=== PATIENT | female | born 1990 | race Caucasian/White ===

== ENCOUNTER 2017-09-28 21:07 | Emergency (ER) | payer OTHER ==
[~2017-09-28] VITALS: Ht 165.1 cm; Wt 144.2 kg
[~2017-09-28 21:07] MED LIST: ALBU90OI INH; CYCL10 PO; Cleocin HCl150 MG PO; DIAZ5 PO; DOXY100 PO; Desyrel50 MG; HYDACE5 PO; IBUP600 PO; IBUP800; MECL25 PO; PERM5TC TOP; PRED10 PO; PRED20 PO; RXHYD5325 PO; TRAM50 PO; Veetids 500500 MG PO
[2017-09-28] MEDS ORDERED: ESCI20 PO (21:13)
[2017-09-28] MEDS ORDERED: PENVK500 PO (21:13)
[2018-06-05] MEDS ORDERED: CYCL10 PO (01:28)
== END 2017-09-28 22:03 | disposition home or self-care (01) ==
LOC: ER 21:07
DX: J02.9 Acute pharyngitis, unspecified (principal); J45.909 Unspecified asthma, uncomplicated; F17.200 Nicotine dependence, unspecified, uncomplicated; Z88.8 Allergy status to other drugs, medicaments and biological substances; Z79.899 Other long term (current) drug therapy; Z79.2 Long term (current) use of antibiotics
CPT/HCPCS: 87081; 87430; 99283

== ENCOUNTER 2018-11-10 10:37 | Emergency (ER) | payer OTHER ==
[~2018-11-10] VITALS: Ht 165.1 cm; Wt 142.9 kg
[~2018-11-10 10:37] MED LIST changes: +ESCI20 PO; +PENVK500 PO
[2018-11-10] MEDS ORDERED: Polytrim Eye Dr10 ML LEFTEYE (11:01)
== END 2018-11-10 11:09 | disposition home or self-care (01) ==
LOC: ER 10:37
DX: H10.9 Unspecified conjunctivitis (principal); J45.909 Unspecified asthma, uncomplicated; F17.210 Nicotine dependence, cigarettes, uncomplicated; Z88.8 Allergy status to other drugs, medicaments and biological substances; Z91.048 Other nonmedicinal substance allergy status; Z79.899 Other long term (current) drug therapy
CPT/HCPCS: 99283

== ENCOUNTER 2019-08-10 10:17 | Emergency (ER) | payer OTHER ==
[~2019-08-10] VITALS: Ht 165.1 cm; Wt 133.8 kg
[~2019-08-10 10:17] MED LIST changes: +Polytrim Eye Dr10 ML LEFTEYE
[2019-08-10] MEDS ORDERED: TIZA4 PO (10:44)
[2019-08-10] MEDS ORDERED: TRAZ50 (10:44)
[2019-08-10] MEDS ORDERED: ESCI20 (10:44)
[2019-08-10] MEDS ORDERED: METPRE4DP PO (11:40)
== END 2019-08-10 11:44 | disposition home or self-care (01) ==
LOC: ER 10:17
DX: M54.16 Radiculopathy, lumbar region (principal); J45.909 Unspecified asthma, uncomplicated; F17.210 Nicotine dependence, cigarettes, uncomplicated; Z88.8 Allergy status to other drugs, medicaments and biological substances
CPT/HCPCS: 96372; 99283-25; J1100; J1885

== ENCOUNTER 2020-01-25 08:41 | Emergency (ER) | payer OTHER ==
[~2020-01-25] VITALS: Ht 165.1 cm; Wt 133.8 kg
[~2020-01-25 08:41] MED LIST changes: +ESCI20; +METPRE4DP PO; +TIZA4 PO; +TRAZ50
[2020-01-25] MEDS ORDERED: Norco 5-325 Ta1 EACH PO (08:56)
[2020-01-25] MEDS ORDERED: METPRE4DP PO (09:17)
[2020-01-25] MEDS ORDERED: Robaxin-750750 MG PO (09:17)
== END 2020-01-25 09:57 | disposition home or self-care (01) ==
LOC: ER 08:41
DX: M54.42 Lumbago with sciatica, left side (principal); F17.210 Nicotine dependence, cigarettes, uncomplicated; Z88.8 Allergy status to other drugs, medicaments and biological substances
CPT/HCPCS: 96372-59; 99283; J1100; J1885

== ENCOUNTER 2020-11-24 19:02 | Emergency (ER) | payer OTHER ==
[~2020-11-24] VITALS: Ht 165.1 cm; Wt 129.7 kg
[~2020-11-24 19:02] MED LIST changes: +Norco 5-325 Ta1 EACH PO; +Robaxin-750750 MG PO
== END 2020-11-24 22:14 | disposition left against medical advice (07) ==
LOC: ER 19:02
DX: K62.5 Hemorrhage of anus and rectum (principal)
CPT/HCPCS: 99282

== ENCOUNTER 2021-04-03 21:26 | Inpatient (IN) | payer OTHER ==
[~2021-04-03] VITALS: Ht 177.8 cm; Wt 137.1 kg
[2021-04-03 22:02] LABS: BASOPHILS ABSOLUTE AUTO 0.04 K/mm3 (0.00-0.23); BASOPHILS PERCENT AUTO 0 % (0-2); EOSINOPHILS ABSOLUTE AUTO 0.06 K/mm3 (0.00-0.68); EOSINOPHILS PERCENT AUTO 0 % (0-6); Hematocrit 49.4 % (33.0-51.0); Hemoglobin 16.5 g/dL (11.5-16.0); IMMATURE GRAN ABSOLUTE AUTO 0.07 K/mm3 (0.00-0.10); IMMATURE GRAN PERCENT AUTO 0 % (0-1); LYMPHOCYTES ABSOLUTE AUTO 2.25 K/mm3 (0.84-5.20); LYMPHOCYTES PERCENT AUTO 14 % (21-46); MONOCYTES ABSOLUTE AUTO 1.14 K/mm3 (0.16-1.47); MONOCYTES PERCENT AUTO 7 % (4-13); Mean Corpuscular HGB 29.8 pg (26.0-34.0); Mean Corpuscular HGB Conc 33.4 g/dL (31.5-36.5); Mean Corpuscular Volume 89 fL (80-100); Mean Platelet Volume 10.9 fL (9.1-12.4); NEUTROPHILS ABSOLUTE AUTO 13.15 K/mm3 (1.96-9.15); NEUTROPHILS PERCENT AUTO 79 % (41-73); Platelet Count 250 K/mm3 (150-400); RDW Coefficient Variation 12.6 % (11.7-14.2); RDW Standard Deviation 41.6 fL (35.1-46.3); Red Blood Cell Count 5.53 M/mm3 (3.80-5.20); White Blood Cell Count 16.71 K/mm3 (4.00-11.30)
[2021-04-03] MEDS ORDERED: Buspirone HCl15 MG PO (22:12)
[2021-04-03] MEDS ORDERED: ESCI20 PO (22:13)
[2021-04-03] MEDS ORDERED: Ventolin/Prove6.7 GM INH (22:13)
[2021-04-03] MEDS ORDERED: ABILIFY5 MG PO (22:14)
[2021-04-03 22:24] LABS: Alanine Aminotransfer (ALT/SGP 106 U/L (12-78); Albumin, Blood 3.9 g/dL (3.4-5.0); Albumin/Globulin Ratio 0.7 (0.8-1.8); Alk Phos 97 U/L (50-136); Anion Gap 9 mmol/L (6-16); Aspartate Aminotrans (AST/SGOT 48 U/L (12-37); Bilirubin, Total 0.9 mg/dL (0.1-1.0); Blood Urea Nitrogen 10 mg/dL (8-24); Bun/Creatinine Ratio 10.4 (12.0-20.0); CO2, Blood 22 mmol/L (21-32); Calcium, Blood 9.7 mg/dL (8.5-10.1); Chloride, Blood 112 mmol/L (98-108); Creatinine, Blood 0.96 mg/dL (0.40-1.00); Globulin, Blood 5.7 g/dL (2.2-4.0); Glomerular Filtration Rate >60 (60-); Glucose, Blood 123 mg/dL (70-99); Potassium, Blood 3.6 mmol/L (3.5-5.5); Sodium, Blood 143 mmol/L (136-145); Total Protein, Blood 9.6 g/dL (6.4-8.2)
[2021-04-03 23:23] LABS: International Normalized Ratio 1.03; Prothrombin Time Results 11.1 Sec (9.7-11.5)
[2021-04-04] MEDS ORDERED: TRAZ150T57 PO (03:01)
--- NOTE | 2021-04-04 10:38 | NUR ---
Echocardiogram completed.
--- NOTE | 2021-04-04 17:02 | NUR ---
ADMIT: 04/04/21 DISCHARGE: DX: Pulmonary Emboli CC: kwilcox RAVI CALL: RESIDENCE: homeless CAREGIVER: self DX: PTSD, Depression, thoracici back pain, see list DME: none CCM: none HOME HEALTH: none SUMMARY: 04/04/21- pt's d/c on hold due to need for O2. Pt is homeless and is going to need samples of Xarelto at discharge. Plan is to potentially d/c Sunday. -michele
--- NOTE | 2021-04-04 18:05 | NUR ---
SHIFT SUMMARY SINCE ARRIVAL TO UNIT, PT HAS BEEN PLEASANT & COOPERATIVE. HEPARIN GTT RUNNING CONTINUOUSLY. DENIED DIZZINESS OR LIGHTHEADEDNESS W/ USE OF BSC.
--- NOTE | 2021-04-05 07:47 | NUR ---
SHIFT SUMMARY S/P BILATERAL PE, A/O X4, VSS, TOLERATING PO, DENIES PAIN T/O SHIFT, HEPARIN DRIP INFUSING, 1X ADJUSTMENT PER PHARMACY TO 20 UNITS/KG/HR WITH ADDITIONAL APTT DRAWS. NO ACUTE EVENTS THIS SHIFT. CALL LIGHT IN REACH, REPORT GIVEN TO DAY RN.
--- NOTE | 2021-04-05 08:54 | NUR ---
PT HAS PHONE COUNSELING SESSION ASKED DOOR TO BE CLOSED FOR PRIVACY.
--- NOTE | 2021-04-05 14:52 | NUR ---
L CALF PAIN CALLED DR HARDING REGARDING PAIN TO PT'S L CALF. PT REPORTS DIFFICULTY BEARING WEIGHT. CALF FEELS WARM BUT NO REDNESS OR FIRMNESS NOTED. ORDERS OBTAINED FOR BILATERAL VENOUS DUPLEX TO R/O DVT. US TECH IN ROOM NOW.
--- NOTE | 2021-04-05 15:01 | NUR ---
POSITIVE FOR DVTS BLE NOTIFIED DR HARDING. ORDERS OBTAINED FOR BEDREST W/BSC PRIVILEGES.
--- NOTE | 2021-04-05 16:02 | NUR ---
04/05/21- per chart review, pt was found to have bilateral pulmonary embolism and DVT. No plan for d/c at this time. -michele
--- NOTE | 2021-04-05 16:37 | NUR ---
PT TEARFUL WISHES TO HAVE VISITOR COME IN. WHEN ADVISED NO VISITORS ALLOWED, ASKED IF COULD GO OUTSIDE. REMINDED PT HAD BEDREST ORDERS; PT COMPLIANT WITH CARE.
--- NOTE | 2021-04-05 17:10 | NUR ---
SUMMARY PT C/O PAIN TO LLE, STATING IT IS DIFFICULT TO BEAR WEIGHT DUE TO PAIN. L CALF FELT WARM BUT NO REDNESS OR FIRMNESS NOTED. NOTIFED DR HARDING, WHO ORDERED BILAT VENOUS DUPLEX OF LOW EXTREMITIES. RESULTS SHOWED BILATERAL DVTS WITH L BEING WORSE THAN RIGHT. PT PLACED ON BEDREST W/BSC PRIVILEGES PER ORDERS. PT ON HEPARIN DRIP MANAGED PER PHARMACY DUE TO ADMITTING DX OF PE. IV PATENT AND INFUSING W/O DIFFICULTY. PT TEARFUL AT TIMES, WISHING COULD HAVE VISITORS. PLEASANT AND COOPERATIVE. CALL LIGHT IN REACH.
[2021-04-06 02:01] LABS: BASOPHILS ABSOLUTE AUTO 0.04 K/mm3 (0.00-0.23); BASOPHILS PERCENT AUTO 0 % (0-2); EOSINOPHILS ABSOLUTE AUTO 0.19 K/mm3 (0.00-0.68); EOSINOPHILS PERCENT AUTO 2 % (0-6); Hematocrit 39.2 % (33.0-51.0); Hemoglobin 13.4 g/dL (11.5-16.0); IMMATURE GRAN ABSOLUTE AUTO 0.04 K/mm3 (0.00-0.10); IMMATURE GRAN PERCENT AUTO 0 % (0-1); LYMPHOCYTES ABSOLUTE AUTO 2.54 K/mm3 (0.84-5.20); LYMPHOCYTES PERCENT AUTO 20 % (21-46); MONOCYTES ABSOLUTE AUTO 1.03 K/mm3 (0.16-1.47); MONOCYTES PERCENT AUTO 8 % (4-13); Mean Corpuscular HGB 30.3 pg (26.0-34.0); Mean Corpuscular HGB Conc 34.2 g/dL (31.5-36.5); Mean Corpuscular Volume 89 fL (80-100); Mean Platelet Volume 11.1 fL (9.1-12.4); NEUTROPHILS ABSOLUTE AUTO 8.74 K/mm3 (1.96-9.15); NEUTROPHILS PERCENT AUTO 70 % (41-73); Platelet Count 213 K/mm3 (150-400); RDW Coefficient Variation 12.6 % (11.7-14.2); RDW Standard Deviation 41.1 fL (35.1-46.3); Red Blood Cell Count 4.42 M/mm3 (3.80-5.20); White Blood Cell Count 12.58 K/mm3 (4.00-11.30)
[2021-04-06 02:19] LABS: Alanine Aminotransfer (ALT/SGP 57 U/L (12-78); Albumin, Blood 2.8 g/dL (3.4-5.0); Albumin/Globulin Ratio 0.6 (0.8-1.8); Alk Phos 67 U/L (50-136); Anion Gap 7 mmol/L (6-16); Aspartate Aminotrans (AST/SGOT 22 U/L (12-37); Bilirubin, Total 0.6 mg/dL (0.1-1.0); Blood Urea Nitrogen 10 mg/dL (8-24); Bun/Creatinine Ratio 12.8 (12.0-20.0); CO2, Blood 25 mmol/L (21-32); Calcium, Blood 8.7 mg/dL (8.5-10.1); Chloride, Blood 107 mmol/L (98-108); Creatinine, Blood 0.78 mg/dL (0.40-1.00); Globulin, Blood 4.5 g/dL (2.2-4.0); Glomerular Filtration Rate >60 (60-); Glucose, Blood 99 mg/dL (70-99); Magnesium, Blood 1.8 mg/dL (1.6-2.4); Phosphorus, Blood 3.3 mg/dL (2.5-4.9); Potassium, Blood 3.5 mmol/L (3.5-5.5); Sodium, Blood 139 mmol/L (136-145); Total Protein, Blood 7.3 g/dL (6.4-8.2)
--- NOTE | 2021-04-06 06:42 | NUR ---
SHIFT SUMMARY PT RESTED WELL T/O NIGHT. AAOX4. DISCOMFORT TO LLE CONTINUES THIS SHIFT, MEDICATED X1 FOR DISCOMFORT. NO NAUSEA/EMESIS. BEDREST WITH BSC. TINGLING TO LLE, NO ACUTE CHANGE THIS SHIFT. HEPARIN GTT PER PHARMACY. DR MARTIN TO BE CONSULTED THIS AM PER ORDER. CURRENTLY PT IS RESTING IN BED WITH CALL LIGHT IN REACH.
--- NOTE | 2021-04-06 11:45 | NUR ---
PT TO PROCEDURE PT TRANSFERED TO PROCEDURE VIA HOSPITAL BED @ THIS TIME. PT A&O X4.
[2021-04-06 12:16] LABS: SARS-Cov-2 (COVID-19) PCR, MMC POSITIVE (NEGATIVE)
--- NOTE | 2021-04-06 15:16 | NUR ---
PT RETURNED FROM PROCEDURE PT RETURNED FROM [facility] AT APPROX. 1505. A&O X4. NO BLEEDING NOTED AT VENOUS SITES. PT IN BED, HOB @ 45 DEGREES.
--- NOTE | 2021-04-06 17:51 | NUR ---
SHIFT SUMMARY PT A&O X4 T/O SHIFT. DENIED SOB, CHEST PAIN, AND DIZZINESS T/O SHIFT. PT RESTED IN BED AND WATCHED T.V. VSS. TOLERATING ORAL INTAKE. DRESSINGS C/D/I. PPP.
[2021-04-07] MEDS ORDERED: XARELTO15 M1 PO (13:36)
[2021-04-07] MEDS ORDERED: XARELTO20 MG PO (13:40)
--- NOTE | 2021-04-07 13:45 | NUR ---
04/07/21- PER CHART REVIEW WITH DR. LA, PT IS STABLE TO DISCHARGE. PT WILL NEED TO BE ON XARELTO AND SAMPLES WILL BE AVAILABLE FOR HER TO SENIOR CUSTOMER SERVICE REPRESENTATIVE AT THE CLINIC. SPOKE WITH PT OVER THE PHONE, REVIEWED D/C AND THAT THERE IS MEDICATION FOR HER TO SENIOR CUSTOMER SERVICE REPRESENTATIVE. PT ASKED TO CHANGE APPT ON 04/13/21 TO HOSPITAL APPT. CONFIRMED TIME WITH PT. -GASPER
--- NOTE | 2021-04-07 17:14 | NUR ---
DISCHARGE PT DISCHARGED HOME FROM UNIT. PT GIVEN WRITTEN AND VERBAL DISCHARGE INSTRUCTIONS AND VERBALIZED UNDERSTANDING OF THESE INSTRUCTIONS. IV REMOVED. WHEELCHAIR TO CAR.
== END 2021-04-07 17:13 | disposition home or self-care (01) | DRG 270 ==
LOC: ER 21:26 → ERHOLD 04-04 00:30 → SURS 04-04 00:30 → ERHOLD 04-04 10:49 → SURS 04-04 13:23 → ERHOLD 04-05 11:35 → SURS 04-05 11:35
PROVIDERS: Hospitalist; Physician Assistant; Radiology Diagnostic Radiology; ADMIT Internal Medicine
PROC: 8E0ZXY6 Isolation (ICD-10-PCS; principal; 2021-04-03)
PROC: 02CR3ZZ Extirpation of Matter from Left Pulmonary Artery, Percutaneous Approach (ICD-10-PCS; 2021-04-06)
PROC: 02CQ3ZZ Extirpation of Matter from Right Pulmonary Artery, Percutaneous Approach (ICD-10-PCS; 2021-04-06)
PROC: 06CN3ZZ Extirpation of Matter from Left Femoral Vein, Percutaneous Approach (ICD-10-PCS; 2021-04-06)
PROC: 06CD3ZZ Extirpation of Matter from Left Common Iliac Vein, Percutaneous Approach (ICD-10-PCS; 2021-04-06)
PROC: 067D3DZ Dilation of Left Common Iliac Vein with Intraluminal Device, Percutaneous Approach (ICD-10-PCS; 2021-04-06)
DX: I82.443 Acute embolism and thrombosis of tibial vein, bilateral (principal); I26.92 Saddle embolus of pulmonary artery without acute cor pulmonale; U07.1 COVID-19; J96.01 Acute respiratory failure with hypoxia; Z68.41 Body mass index [BMI] 40.0-44.9, adult; I87.1 Compression of vein; I82.422 Acute embolism and thrombosis of left iliac vein; J45.909 Unspecified asthma, uncomplicated; F32.9 Major depressive disorder, single episode, unspecified; G89.29 Other chronic pain; F41.9 Anxiety disorder, unspecified; E66.01 Morbid (severe) obesity due to excess calories; R77.8 Other specified abnormalities of plasma proteins; I82.452 Acute embolism and thrombosis of left peroneal vein; I82.412 Acute embolism and thrombosis of left femoral vein; I82.431 Acute embolism and thrombosis of right popliteal vein; M54.30 Sciatica, unspecified side; F17.210 Nicotine dependence, cigarettes, uncomplicated; Z88.8 Allergy status to other drugs, medicaments and biological substances; Z59.0 Homelessness; Z79.899 Other long term (current) drug therapy
CPT/HCPCS: 36415; 37184; 37185; 37187; 37238; 37252; 71045; 71260; 75743; 75820; 75825; 80053; 83735; 84100; 84484; 85025; 85347; 85610; 85730; 93005; 93010; 93970; 94762; 96365; 96366; 96376; 99152; 99153; 99285-25; A9270; C1725; C1757; C1769; C1876; C1887; C1894; C8929; J1644; J2250; J3010; J7030; Q9957; Q9967; U0004

== ENCOUNTER 2021-04-27 11:41 | Emergency (ER) | payer OTHER ==
[~2021-04-27] VITALS: Ht 165.1 cm; Wt 143.8 kg
[~2021-04-27 11:41] MED LIST changes: +ABILIFY5 MG PO; +Buspirone HCl15 MG PO; +TRAZ150T57 PO; +Ventolin/Prove6.7 GM INH; +XARELTO15 M1 PO; +XARELTO20 MG PO
[2021-04-27] MEDS ORDERED: ESCI10 PO (11:59)
[2021-04-27] MEDS ORDERED: MICONAZOLE NIT130 GM TOP (13:04)
== END 2021-04-27 13:33 | disposition home or self-care (01) ==
LOC: ER 11:41
DX: T81.31XA Disruption of external operation (surgical) wound, not elsewhere classified, initial encounter (principal); B37.2 Candidiasis of skin and nail; J45.909 Unspecified asthma, uncomplicated; Z88.8 Allergy status to other drugs, medicaments and biological substances; Z91.048 Other nonmedicinal substance allergy status; Z79.899 Other long term (current) drug therapy; Z87.891 Personal history of nicotine dependence
CPT/HCPCS: 99284; A9270

== ENCOUNTER 2022-12-25 06:25 | Emergency (ER) | payer OTHER ==
[~2022-12-25] VITALS: Ht 165.1 cm; Wt 142.9 kg
[~2022-12-25 06:25] MED LIST changes: +ESCI10 PO; +MICONAZOLE NIT130 GM TOP; +TRAZ50 PO
[2022-12-25 08:01] LABS: BASOPHILS ABSOLUTE AUTO 0.06 K/mm3 (0.00-0.23); BASOPHILS PERCENT AUTO 0 % (0-2); EOSINOPHILS ABSOLUTE AUTO 0.09 K/mm3 (0.00-0.68); EOSINOPHILS PERCENT AUTO 1 % (0-6); Hematocrit 36.8 % (33.0-51.0); Hemoglobin 11.8 g/dL (11.5-16.0); IMMATURE GRAN ABSOLUTE AUTO 0.06 K/mm3 (0.00-0.10); IMMATURE GRAN PERCENT AUTO 0 % (0-1); LYMPHOCYTES ABSOLUTE AUTO 2.04 K/mm3 (0.84-5.20); LYMPHOCYTES PERCENT AUTO 12 % (21-46); MONOCYTES ABSOLUTE AUTO 1.53 K/mm3 (0.16-1.47); MONOCYTES PERCENT AUTO 9 % (4-13); Mean Corpuscular HGB 28.4 pg (26.0-34.0); Mean Corpuscular HGB Conc 32.1 g/dL (31.5-36.5); Mean Corpuscular Volume 89 fL (80-100); Mean Platelet Volume 9.7 fL (9.1-12.4); NEUTROPHILS ABSOLUTE AUTO 13.04 K/mm3 (1.96-9.15); NEUTROPHILS PERCENT AUTO 78 % (41-73); Platelet Count 345 K/mm3 (150-400); RDW Coefficient Variation 13.3 % (11.7-14.2); RDW Standard Deviation 43.3 fL (35.1-46.3); Red Blood Cell Count 4.15 M/mm3 (3.80-5.20); White Blood Cell Count 16.82 K/mm3 (4.00-11.30)
[2022-12-25 08:25] LABS: Albumin, Blood 2.7 g/dL (3.4-5.0); Albumin/Globulin Ratio 0.5 (0.8-1.8); Bilirubin, Total 0.6 mg/dL (0.1-1.0); Bun/Creatinine Ratio 12.3 (12.0-20.0); Calcium, Blood 8.2 mg/dL (8.5-10.1); Creatinine, Blood 0.81 mg/dL (0.40-1.00); Globulin, Blood 5.3 g/dL (2.2-4.0)
[2022-12-25 09:01] LABS: Influenza A, PCR NEGATIVE (NEGATIVE); Influenza B, PCR NEGATIVE (NEGATIVE); Resp Syncytial Virus, PCR NEGATIVE (NEGATIVE); SARS-Cov-2 (COVID-19) PCR, MMC NEGATIVE (NEGATIVE)
[2022-12-25 10:32] VITALS: BP 100/55
[2022-12-25 10:37] LABS: Appearance, Urine Clear (Clear); Blood, Urine Neg (Neg); Color, Urine Yellow (P-Yellow); Glucose Qualitative, Urine Neg (Neg); Ketones, Urine 1+ (Neg); Leukocyte Esterase, Urine 1+ (Neg); Nitrite, Urine Neg (Neg); Protein, Urine 2+ (Neg); Source, Urine Clean Catch; Specific Gravity, Urine 1.015 (1.003-1.022); Urobilinogen, Urine 2+ (Normal); pH, Urine 6.5 (5.0-8.0)
[2022-12-25 10:52] LABS: Bilirubin, Urine 1+ (Neg)
[2022-12-25 10:53] LABS: Bacteria Mod /hpf; Mucus Mod (0-Heavy); Red Blood Cells, Urine 0-2 /hpf (0-2); Squamous Epithelial Cells Mod /hpf (Few)
[2022-12-25] MEDS ORDERED: Bactrim Ds Tab1 EACH PO (11:17)
== END 2022-12-25 11:29 | disposition home or self-care (01) ==
LOC: ER 06:25
PROVIDERS: Emergency Medicine
DX: L03.113 Cellulitis of right upper limb (principal); R06.02 Shortness of breath; F15.90 Other stimulant use, unspecified, uncomplicated; J45.909 Unspecified asthma, uncomplicated; Z88.8 Allergy status to other drugs, medicaments and biological substances; Z91.048 Other nonmedicinal substance allergy status; Z79.899 Other long term (current) drug therapy
CPT/HCPCS: 0241U; 71046; 71260; 80053; 81001; 81025; 85025; 85379; 87086; 96374-59; 99284-25; A9270; J1885; J7030; Q9967

== ENCOUNTER 2022-12-29 14:38 | Inpatient (IN) | payer OTHER ==
[~2022-12-29] VITALS: Ht 165.1 cm; Wt 132.6 kg
[~2022-12-29 14:38] MED LIST changes: +Bactrim Ds Tab1 EACH PO
[2022-12-29 15:51] LABS: Source, Urine Clean Catch
[2022-12-29 15:55] LABS: Appearance, Urine Clear (Clear); Bilirubin, Urine Neg (Neg); Blood, Urine Neg (Neg); Color, Urine Amber (P-Yellow); Glucose Qualitative, Urine Neg (Neg); Ketones, Urine Neg (Neg); Leukocyte Esterase, Urine 1+ (Neg); Nitrite, Urine Neg (Neg); Protein, Urine 2+ (Neg); Urobilinogen, Urine 2+ (Normal); pH, Urine 6.5 (5.0-8.0)
[2022-12-29 16:29] LABS: Bacteria Rare /hpf; Mucus Light (0-Heavy); Red Blood Cells, Urine 0-2 /hpf (0-2); Squamous Epithelial Cells Mod /hpf (Few)
[2022-12-29 20:46] VITALS: BP 111/69
[2022-12-30 04:19] VITALS: BP 120/68
[2022-12-30 05:37] LABS: BASOPHILS ABSOLUTE AUTO 0.04 K/mm3 (0.00-0.23); BASOPHILS PERCENT AUTO 0 % (0-2); EOSINOPHILS ABSOLUTE AUTO 0.14 K/mm3 (0.00-0.68); EOSINOPHILS PERCENT AUTO 1 % (0-6); Hematocrit 33.8 % (33.0-51.0); Hemoglobin 10.9 g/dL (11.5-16.0); IMMATURE GRAN ABSOLUTE AUTO 0.06 K/mm3 (0.00-0.10); IMMATURE GRAN PERCENT AUTO 0 % (0-1); LYMPHOCYTES PERCENT AUTO 12 % (21-46); MONOCYTES ABSOLUTE AUTO 0.95 K/mm3 (0.16-1.47); MONOCYTES PERCENT AUTO 7 % (4-13); Mean Corpuscular HGB 28.2 pg (26.0-34.0); Mean Corpuscular HGB Conc 32.2 g/dL (31.5-36.5); Mean Corpuscular Volume 87 fL (80-100); Mean Platelet Volume 9.9 fL (9.1-12.4); NEUTROPHILS ABSOLUTE AUTO 10.83 K/mm3 (1.96-9.15); NEUTROPHILS PERCENT AUTO 79 % (41-73); Platelet Count 385 K/mm3 (150-400); RDW Coefficient Variation 13.4 % (11.7-14.2); RDW Standard Deviation 42.9 fL (35.1-46.3); Red Blood Cell Count 3.87 M/mm3 (3.80-5.20); White Blood Cell Count 13.72 K/mm3 (4.00-11.30)
[2022-12-30 06:13] LABS: Bun/Creatinine Ratio 10.3 (12.0-20.0); Calcium, Blood 8.8 mg/dL (8.5-10.1); Creatinine, Blood 0.68 mg/dL (0.40-1.00); Potassium, Blood 3.6 mmol/L (3.5-5.5)
[2022-12-30 07:38] VITALS: BP 119/74
--- NOTE | 2022-12-30 10:26 | NUR ---
NOTIFIED MD Called [facility] and reported concerns, patient reported hives in the ER last night, while receiving Vanco. This morning patient received IV Cefapime, and c/o red splotches on her right eyebrow and right cheek. Patients fingers bilat, pale/dusky & cap refill >3 sec. Patient also appears very tired, but easily arouses to voice. MD said he would change IV ABX and asked RN not to give the IV fentynal and to continue to monitor.
[2022-12-30 15:29] LABS: Source, Urine Clean Catch
[2022-12-30 15:36] LABS: Appearance, Urine Clear (Clear); Bilirubin, Urine Neg (Neg); Blood, Urine Neg (Neg); Color, Urine Yellow (P-Yellow); Glucose Qualitative, Urine Neg (Neg); Ketones, Urine Neg (Neg); Leukocyte Esterase, Urine Neg (Neg); Nitrite, Urine Neg (Neg); Protein, Urine Neg (Neg); Urobilinogen, Urine NORM (Normal)
[2022-12-30 15:48] LABS: U Amphetamine Screen DETECTED; U Barbituate Screen Not Detected; U Benzodiazapine Screen Not Detected; U Buprenorphine Screen Not Detected; U Cannabinoids Screen Not Detected; U Cocaine Screen Not Detected; U Methadone Screen Not Detected; U Methamphetamine Screen DETECTED; U Opiates Screen Not Detected; U Oxycodone Screen Not Detected; U Phencyclidine Screen Not Detected; U Propoxyphene Screen Not Detected
[2022-12-30 16:18] VITALS: BP 131/81
--- NOTE | 2022-12-30 17:07 | NUR ---
SHIFT SUMMARY: PT HAS BECOME MORE ALERT THROUGHOUT MY SHIFT. SHE WAS UP FOR A SHOWER AND USED THE CHG WIPES AFTERWARDS. SHE HAS HAD FAMILY AT BEDSIDE AND FOOD BROUGHT IN HER APPITITE INCREASES. SHE HAS TOLERATED HER IV ANTIBIOTICS WELL WITH NO COMPLAINTS OF BURNING OR ITCHING AT IV SITE. WILL CONTINUE TO MONITOR UNTIL END OF SHIFT.
--- NOTE | 2022-12-30 18:29 | NUR ---
MD NOTIFIED Cefipime ABX finished infusing, observed patients face & neck were flush and red. No hives noted, patient denies pruritis or SOB. Patients RR even/nonlabored, answers questions appropriately. Notified MD of facial redness, explained this occured this AM after cefipime finished infusing, but redness was not as severe, day MD aware, but no changes to ABX on dayshift. MD instructed RN to give benedryl & stated he would look over chart & medications.
--- NOTE | 2022-12-30 19:14 | NUR ---
Shift report given to RN & Charge nurse, about the redness in her face that was observed after Cefipime IV ABX given this AM & afternoon. Pharmacy called & notifed this RN that MD changed rate of Vanco to a slower rate. This RN told the pharmacist that Vanco as not given this shift, only Cefipime, and the redness in the patients face was observed after each administration, and this afternoon the redness was worse. Pharamcist told this RN she was unaware about the cefipime the MD only discussed the Vancomycin ABX with her.
[2022-12-30 20:02] VITALS: BP 134/84
[2022-12-30 21:35] VITALS: BP 135/87
[2022-12-30 22:22] VITALS: BP 137/86
[2022-12-31 05:58] LABS: BASOPHILS ABSOLUTE AUTO 0.05 K/mm3 (0.00-0.23); BASOPHILS PERCENT AUTO 0 % (0-2); EOSINOPHILS ABSOLUTE AUTO 0.17 K/mm3 (0.00-0.68); EOSINOPHILS PERCENT AUTO 1 % (0-6); Hematocrit 32.5 % (33.0-51.0); Hemoglobin 10.5 g/dL (11.5-16.0); IMMATURE GRAN ABSOLUTE AUTO 0.08 K/mm3 (0.00-0.10); IMMATURE GRAN PERCENT AUTO 1 % (0-1); LYMPHOCYTES ABSOLUTE AUTO 2.24 K/mm3 (0.84-5.20); LYMPHOCYTES PERCENT AUTO 16 % (21-46); MONOCYTES PERCENT AUTO 10 % (4-13); Mean Corpuscular HGB 28.5 pg (26.0-34.0); Mean Corpuscular HGB Conc 32.3 g/dL (31.5-36.5); Mean Corpuscular Volume 88 fL (80-100); NEUTROPHILS PERCENT AUTO 73 % (41-73); Platelet Count 392 K/mm3 (150-400); RDW Coefficient Variation 13.4 % (11.7-14.2); RDW Standard Deviation 43.3 fL (35.1-46.3); Red Blood Cell Count 3.68 M/mm3 (3.80-5.20); White Blood Cell Count 14.44 K/mm3 (4.00-11.30)
[2022-12-31 06:20] LABS: Albumin, Blood 1.9 g/dL (3.4-5.0); Albumin/Globulin Ratio 0.4 (0.8-1.8); Bilirubin, Total 0.3 mg/dL (0.1-1.0); Bun/Creatinine Ratio 9.5 (12.0-20.0); Calcium, Blood 8.8 mg/dL (8.5-10.1); Creatinine, Blood 0.63 mg/dL (0.40-1.00); Globulin, Blood 5.3 g/dL (2.2-4.0); Potassium, Blood 3.7 mmol/L (3.5-5.5); Total Protein, Blood 7.2 g/dL (6.4-8.2)
[2022-12-31 07:26] VITALS: BP 118/78
[2022-12-31 16:27] LABS: Vancomycin, Trough 3.1 ug/mL (5.0-10.0)
[2022-12-31 16:30] VITALS: BP 136/82
--- NOTE | 2022-12-31 17:33 | NUR ---
SHIFT SUMMARY PATIENT IS AOX4 AND ABLE TO MAKE NEEDS KNOWN. PATIENT INDEPENDENT IN ROOM. SIGNIFICANT OTHER AT BEDSIDE MOST OF THE DAY. PATIENT IS COMPLIANT WITH CARE AND ABLE TO MAKE NEEDS KNOWN. PATIENT RESTING T/O SHIFT, UP TO BATHROOM. PAIN ASSESSED AND MEDICATED PER ORDERS; SEE EMAR. BED IS IN THE LOWEST POSITION. CALL LIGHT IN REACH.
--- NOTE | 2022-12-31 17:55 | NUR ---
PLEASE REFER TO STUDENT NOTE FOR SHIFT SUMMARY.
[2022-12-31 20:30] VITALS: BP 120/71
--- NOTE | 2023-01-01 04:45 | NUR ---
PT IS A&O 4, INDEPENDENT IN THE ROOM, PRN PAIN MEDICATION GIVEN PER MAR, RA, VSS, NO ACUTE OVERNIGHT EVENTS CONTINUE POC
[2023-01-01 05:42] LABS: BASOPHILS ABSOLUTE AUTO 0.04 K/mm3 (0.00-0.23); BASOPHILS PERCENT AUTO 0 % (0-2); EOSINOPHILS ABSOLUTE AUTO 0.18 K/mm3 (0.00-0.68); EOSINOPHILS PERCENT AUTO 1 % (0-6); Hematocrit 32.7 % (33.0-51.0); Hemoglobin 10.4 g/dL (11.5-16.0); IMMATURE GRAN ABSOLUTE AUTO 0.06 K/mm3 (0.00-0.10); IMMATURE GRAN PERCENT AUTO 0 % (0-1); LYMPHOCYTES ABSOLUTE AUTO 1.58 K/mm3 (0.84-5.20); LYMPHOCYTES PERCENT AUTO 11 % (21-46); MONOCYTES ABSOLUTE AUTO 1.33 K/mm3 (0.16-1.47); MONOCYTES PERCENT AUTO 9 % (4-13); Mean Corpuscular HGB Conc 31.8 g/dL (31.5-36.5); Mean Corpuscular Volume 88 fL (80-100); Mean Platelet Volume 9.5 fL (9.1-12.4); NEUTROPHILS ABSOLUTE AUTO 11.57 K/mm3 (1.96-9.15); NEUTROPHILS PERCENT AUTO 78 % (41-73); Platelet Count 416 K/mm3 (150-400); RDW Coefficient Variation 13.3 % (11.7-14.2); RDW Standard Deviation 43.2 fL (35.1-46.3); Red Blood Cell Count 3.71 M/mm3 (3.80-5.20); White Blood Cell Count 14.76 K/mm3 (4.00-11.30)
[2023-01-01 06:19] LABS: Albumin, Blood 1.9 g/dL (3.4-5.0); Albumin/Globulin Ratio 0.4 (0.8-1.8); Bilirubin, Total 0.5 mg/dL (0.1-1.0); Bun/Creatinine Ratio 6.2 (12.0-20.0); Calcium, Blood 8.7 mg/dL (8.5-10.1); Creatinine, Blood 0.64 mg/dL (0.40-1.00); Globulin, Blood 5.4 g/dL (2.2-4.0); Potassium, Blood 3.8 mmol/L (3.5-5.5); Total Protein, Blood 7.3 g/dL (6.4-8.2)
[2023-01-01 07:16] VITALS: BP 122/88
[2023-01-01 15:36] VITALS: BP 131/69
[2023-01-01 16:16] LABS: Vancomycin, Trough 15.5 ug/mL (5.0-10.0)
[2023-01-01 17:00] VITALS: BP 134/75
--- NOTE | 2023-01-01 17:57 | NUR ---
SHIFT SUMMARY PT C/O OF TOOTH PAIN, RELIEVED BY TYLENOL AND ABD PAIN TODAY. PT ONLY MEDICATED WITH TYLENOL TWICE THIS SHIFT. NEW IV PLACED TO JULIO. PT IS VERY DIFFICULT STICK. PT SHOWERED TODAY. VERY SLEEPY, BUT AWAKES TO CONVERSATION. PT BOYFIREND NOT TO BE ALLOWED BACK IN PATIENTS ROOM. PT SHIVERING AND COMPLAINING OF BEING COLD THIS AFTERNOON. NO FEVER. THIS PASSED AFTER RECIEVING TYLENOL.
[2023-01-02 05:45] LABS: BASOPHILS ABSOLUTE AUTO 0.06 K/mm3 (0.00-0.23); BASOPHILS PERCENT AUTO 0 % (0-2); EOSINOPHILS ABSOLUTE AUTO 0.19 K/mm3 (0.00-0.68); EOSINOPHILS PERCENT AUTO 1 % (0-6); Hematocrit 32.5 % (33.0-51.0); Hemoglobin 10.3 g/dL (11.5-16.0); IMMATURE GRAN ABSOLUTE AUTO 0.09 K/mm3 (0.00-0.10); IMMATURE GRAN PERCENT AUTO 1 % (0-1); LYMPHOCYTES ABSOLUTE AUTO 1.94 K/mm3 (0.84-5.20); LYMPHOCYTES PERCENT AUTO 14 % (21-46); MONOCYTES ABSOLUTE AUTO 1.19 K/mm3 (0.16-1.47); MONOCYTES PERCENT AUTO 9 % (4-13); Mean Corpuscular HGB 27.8 pg (26.0-34.0); Mean Corpuscular HGB Conc 31.7 g/dL (31.5-36.5); Mean Corpuscular Volume 88 fL (80-100); Mean Platelet Volume 9.6 fL (9.1-12.4); NEUTROPHILS ABSOLUTE AUTO 10.56 K/mm3 (1.96-9.15); NEUTROPHILS PERCENT AUTO 75 % (41-73); Platelet Count 433 K/mm3 (150-400); RDW Coefficient Variation 13.4 % (11.7-14.2); RDW Standard Deviation 43.4 fL (35.1-46.3); White Blood Cell Count 14.03 K/mm3 (4.00-11.30)
[2023-01-02 06:14] LABS: Albumin, Blood 1.9 g/dL (3.4-5.0); Albumin/Globulin Ratio 0.3 (0.8-1.8); Bilirubin, Total 0.4 mg/dL (0.1-1.0); Bun/Creatinine Ratio 7.8 (12.0-20.0); Calcium, Blood 8.7 mg/dL (8.5-10.1); Creatinine, Blood 0.64 mg/dL (0.40-1.00); Globulin, Blood 5.8 g/dL (2.2-4.0); Potassium, Blood 3.6 mmol/L (3.5-5.5); Total Protein, Blood 7.7 g/dL (6.4-8.2)
[2023-01-02 07:37] VITALS: BP 125/77
[2023-01-02 15:32] VITALS: BP 116/84
--- NOTE | 2023-01-02 16:47 | NUR ---
SHIFT SUMMARY PT IND IN ROOM T/O THE DAY. AWAITING CT OF ABDMEN TO HELP DETERMINE FURTHER COURSE OF TREATMENT. PG PLACED TO OLAF THIS SHIFT. PT DENIED NEED FOR PAIN MEDS THIS SHIFT. CALL LIGHT IN REACH. RESTING IN ROOM. CALL LIGHT IN REACH. DENIES OTHER NEEDS AT THIS TIME. NO OTHER ACUTE CHANGES IN ASSESSMENT AT THIS TIME.
[2023-01-02 19:17] VITALS: BP 119/81
--- NOTE | 2023-01-03 05:40 | NUR ---
PT IS A&O4, INDEPENDENT IN THE ROOM, RA, NEW IV PLACED THIS SHIFT POWERGLIDE PLACED YESTERDAY IS SLUGGISH, PRN PAINMEDICATION GIVEN PER MAR, NO ACUTE OVERNIGHT EVENTS CONTINUE POC
[2023-01-03 07:27] VITALS: BP 120/83
[2023-01-03] MEDS ORDERED: CEFD300 PO (13:32)
--- NOTE | 2023-01-03 13:59 | NUR ---
DISCHARGE PATIENT CLEARED TO DISCHARGE HOME. EATING, DRINKING, & VOIDING WELL. MINIMAL PAIN THIS SHIFT, MANAGED WELL PER EMAR. DENIES N/V. AMBULATING INDEPENDENTLY TO BATHROOM AND IN ROOM. DISCUSSED DISCHARGE INSTRUCTIONS, PATIENT WAITING FOR RIDE. WILL ESCORT OUT VIA W/C WHEN RIDE ARRIVES.
--- NOTE | 2023-01-03 15:23 | NUR ---
patient escorted out via w/c
== END 2023-01-03 15:15 | disposition home or self-care (01) | DRG 690 ==
LOC: ER 14:38 → MEDS 14:39 → ENPENDDIS 01-03 13:12 → MEDS 01-03 15:15
PROVIDERS: Family Medicine; Student in an Organized Health Care Education/Training Program; ADMIT Student in an Organized Health Care Education/Training Program
DX: N15.1 Renal and perinephric abscess (principal); E87.1 Hypo-osmolality and hyponatremia; Z68.42 Body mass index [BMI] 45.0-49.9, adult; D72.829 Elevated white blood cell count, unspecified; J45.909 Unspecified asthma, uncomplicated; R00.0 Tachycardia, unspecified; F15.10 Other stimulant abuse, uncomplicated; E66.9 Obesity, unspecified; L98.499 Non-pressure chronic ulcer of skin of other sites with unspecified severity; F32.A Depression, unspecified; F12.90 Cannabis use, unspecified, uncomplicated; Z88.8 Allergy status to other drugs, medicaments and biological substances; Z91.09 Other allergy status, other than to drugs and biological substances; Z79.01 Long term (current) use of anticoagulants; Z86.711 Personal history of pulmonary embolism; Z86.718 Personal history of other venous thrombosis and embolism; Z98.890 Other specified postprocedural states; Z59.00 Homelessness unspecified; Z87.891 Personal history of nicotine dependence
CPT/HCPCS: 36415; 74170; 80048; 80053; 80202; 81001; 81003; 81025; 83605; 85025; 87040; 87086; 96365-59; 96367; 96372; 96375; 96376; 99285-25; A9270; G0378; J0692; J1200; J1650; J2405; J2543; J3370; J7030; J7050; J7120; Q9967

== ENCOUNTER 2024-03-06 09:37 | Emergency (ER) | payer OTHER ==
[~2024-03-06] VITALS: Ht 165.1 cm; Wt 122.5 kg
[~2024-03-06 09:37] MED LIST changes: +CEFD300 PO
[2024-03-06 10:23] LABS: BASOPHILS ABSOLUTE AUTO 0.05 K/mm3 (0.00-0.23); BASOPHILS PERCENT AUTO 0 % (0-2); EOSINOPHILS ABSOLUTE AUTO 0.15 K/mm3 (0.00-0.68); EOSINOPHILS PERCENT AUTO 1 % (0-6); Hematocrit 40.4 % (33.0-51.0); Hemoglobin 13.3 g/dL (11.5-16.0); IMMATURE GRAN ABSOLUTE AUTO 0.01 K/mm3 (0.00-0.10); IMMATURE GRAN PERCENT AUTO 0 % (0-1); LYMPHOCYTES PERCENT AUTO 16 % (21-46); MONOCYTES ABSOLUTE AUTO 0.63 K/mm3 (0.16-1.47); MONOCYTES PERCENT AUTO 5 % (4-13); Mean Corpuscular HGB Conc 32.9 g/dL (31.5-36.5); Mean Corpuscular Volume 88 fL (80-100); NEUTROPHILS ABSOLUTE AUTO 9.26 K/mm3 (1.96-9.15); NEUTROPHILS PERCENT AUTO 77 % (41-73); Platelet Count 336 K/mm3 (150-400); RDW Coefficient Variation 13.1 % (11.7-14.2); RDW Standard Deviation 42.2 fL (35.1-46.3); Red Blood Cell Count 4.59 M/mm3 (3.80-5.20)
[2024-03-06 10:48] LABS: Albumin/Globulin Ratio 0.6 (0.8-1.8); Bilirubin, Total 0.3 mg/dL (0.1-1.0); Bun/Creatinine Ratio 7.2 (12.0-20.0); Calcium, Blood 8.5 mg/dL (8.5-10.1); Creatinine, Blood 0.55 mg/dL (0.40-1.00); Potassium, Blood 4.3 mmol/L (3.5-5.5)
[2024-03-06 11:32] LABS: Source, Urine Clean Catch
[2024-03-06 11:41] LABS: Appearance, Urine Hazy (Clear); Bilirubin, Urine Neg (Neg); Blood, Urine Neg (Neg); Color, Urine Yellow (P-Yellow); Glucose Qualitative, Urine Neg (Neg); Ketones, Urine Neg (Neg); Leukocyte Esterase, Urine 1+ (Neg); Nitrite, Urine Pos (Neg); Protein, Urine Neg (Neg); Urobilinogen, Urine NORM (Normal)
[2024-03-06 11:58] LABS: Amorphous Light (0-Heavy); Bacteria Many /hpf; Red Blood Cells, Urine Not Seen /hpf (0-2); Squamous Epithelial Cells Many /hpf (Few)
[2024-03-06] MEDS ORDERED: NS 1,000 ML IV SCH (12:05)
[2024-03-06] MEDS ORDERED: CefTRIAXone Sodium 1,000 MG in NS 100 ML IV ONE (12:10)
[2024-03-06] MEDS ORDERED: Bactrim Ds Tab1 EACH PO (15:58)
[2024-03-06] MEDS ORDERED: CEPHALEXIN500 M1 PO (15:58)
[2024-03-06 16:25] VITALS: BP 100/71
== END 2024-03-06 16:25 | disposition home or self-care (01) ==
LOC: ER 09:37
PROVIDERS: Physician Assistant
DX: K80.20 Calculus of gallbladder without cholecystitis without obstruction (principal); L03.114 Cellulitis of left upper limb; R16.0 Hepatomegaly, not elsewhere classified; K76.0 Fatty (change of) liver, not elsewhere classified; N39.0 Urinary tract infection, site not specified; J45.909 Unspecified asthma, uncomplicated; Z87.891 Personal history of nicotine dependence; Z88.8 Allergy status to other drugs, medicaments and biological substances; Z91.048 Other nonmedicinal substance allergy status
CPT/HCPCS: 76705; 76770; 76815; 80053; 81001; 83690; 84702; 84703; 85025; 87077; 87086; 87186; 96365; 99284-25; J0696; J7030

== ENCOUNTER 2025-05-30 12:04 | Emergency (ER) | payer OTHER ==
[~2025-05-30] VITALS: Ht 165.1 cm; Wt 129.3 kg
[~2025-05-30 12:04] MED LIST changes: +CEPHALEXIN500 M1 PO
[2025-05-30 12:12] VITALS: BP 140/87
[2025-05-30] MEDS ORDERED: ACET500 PO (12:30)
[2025-05-30] MEDS ORDERED: IBUP400 PO (12:30)
[2025-05-30] MEDS ORDERED: AMOCLA875 PO (12:30)
[2025-05-30] MEDS ORDERED: OXYC5 PO (12:30)
== END 2025-05-30 12:30 | disposition home or self-care (01) ==
LOC: ER 12:04
DX: K04.7 Periapical abscess without sinus (principal); Z79.899 Other long term (current) drug therapy; Z88.8 Allergy status to other drugs, medicaments and biological substances; J45.909 Unspecified asthma, uncomplicated; Z87.891 Personal history of nicotine dependence
CPT/HCPCS: 99283; A9270